=== PATIENT | female | born 1940 | race Caucasian/White ===

== ENCOUNTER 2018-05-18 00:59 | Inpatient (IN) | payer OTHER, MEDICAID ==
[~2018-05-18] VITALS: Ht 157.5 cm; Wt 100.5 kg
[2018-05-18] MEDS ORDERED: HEPARIN 25,000 UNITS/500ML PMX 500 ML ONE (01:05)
--- NOTE | 2018-05-18 01:14 | NUR ---
PT PRESENTS TO E/D FROM [facility]. 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 STATES PRESSURE IN CHEST AND RADIATING TO JAW. "I FELT LIKE I NEEDED TO BURP, BUT I COULDNT." TOOK 2 DOSES OF HOME NITRO--ACQUIRED FOR HER CHF PER REPORT-- WITH NO RELIEF. A 12 LEAD IN [facility] SHOWED A RIGHT BBB, BUT RESOLVED AFTER SECOND EKG. TWO TROPS AT [facility] W/ 0.11 FIRST AND 0.[address] ELEVATION IN EKG IN ED [facility]. 5K HEPARIN BOLUS STARTED IN AND DRIP PRESENT IN [facility]. 324 MG ASPIRIN ADMIN IN . ALL MONITORING APPLIED. VSS. CALL LIGHT WITHIN REACH.
[2018-05-18] MEDS ORDERED: HEPARIN 25,000 UNITS/500ML PMX 500 ML IV PRN (01:30)
[2018-05-18] MEDS ORDERED: HEPARIN 5,000 UNITS/ML, 1ML IV PRN (01:30)
[2018-05-18] MEDS ORDERED: HEPARIN 5,000 UNITS/ML, 1ML IV ONE (01:30)
--- NOTE | 2018-05-18 01:55 | NUR ---
Called [facility] as patient has Intermediate Plus and tx denied as patient does not require higher level of care.
[2018-05-18 02:04] VITALS: BP 147/82
[2018-05-18] MEDS ORDERED: SODIUM CHLORIDE 0.9% 1,000 ML IV SCH (02:29)
[2018-05-18] MEDS ORDERED: ONDANSETRON ODT 4 MG PO PRN (02:30)
[2018-05-18] MEDS ORDERED: BISACODYL 10 MG SUPP PR PRN (02:30)
[2018-05-18] MEDS ORDERED: PROMETHAZINE 25 MG/ML, 1ML IM PRN (02:30)
[2018-05-18] MEDS ORDERED: ONDANSETRON 2MG/ML, 2ML IVPush PRN (02:30)
[2018-05-18] MEDS ORDERED: NITROGLYCERIN 0.4 MG BOTTLE (25 TABS) SL PRN (02:30)
[2018-05-18] MEDS ORDERED: hydrALAzine 20 MG/ML, 1ML IVPush PRN (02:30)
[2018-05-18] MEDS ORDERED: morphine SULFATE 10 MG/ML, 1ML IVPush PRN (02:30)
[2018-05-18] MEDS ORDERED: DOCUSATE 100 MG CAPSULE PO PRN (02:30)
[2018-05-18] MEDS ORDERED: POLYETHYLENE GLYCOL 17 GM PACKET PO PRN (02:30)
[2018-05-18] MEDS ORDERED: ACETAMINOPHEN 325 MG TABLET PO PRN (02:30)
[2018-05-18] MEDS ORDERED: OXYcodone IR 5MG TABLET PO PRN (02:30)
[2018-05-18 04:18] LABS: MICROSCOPIC AUTO
[2018-05-18 04:26] LABS: CULTURE INDICATED? YES
[2018-05-18] MEDS ORDERED: ASPIRIN 325 MG TABLET EC PO SCH (06:00)
[2018-05-18 07:15] VITALS: BP 132/76
[2018-05-18 07:59] LABS: HEMOGLOBIN A1C 5.9 % (4.2-6.3)
[2018-05-18 08:01] LABS: FREE T4 (FREE THYROXINE) 1.08 ng/dL (0.76-1.46); THYROID STIMULATING HORMONE 0.63 mIU/L (0.358-3.740)
[2018-05-18] MEDS ORDERED: REGADENOSON 0.4 MG/5 ML SYRINGE ONE (08:30)
[2018-05-18] MEDS: FAMOTIDINE 20 MG/2 ML IVPush SCH ×2 (08:51→20:38)
[2018-05-18] MEDS ORDERED: SODIUM CHLORIDE 0.9% 1,000 ML IV ONE (10:30)
[2018-05-18 10:47] LABS: ANION GAP 8 mmol/L (5-15); CALCIUM 8.7 mg/dL (8.5-10.1); CHLORIDE 112 mmol/L (98-107); CREATININE 0.78 mg/dL (0.55-1.02)
[2018-05-18 10:49] LABS: INTERNATIONAL NORMALIZED RATIO 1.06 (0.93-1.1); PROTHROMBIN TIME 11.2 Seconds (9.6-11.5)
[2018-05-18] MEDS ORDERED: VERAPAMIL 2.5 MG/ML, 2ML ONE ×2 (13:44→15:52)
[2018-05-18] MEDS ORDERED: FENTANYL PF 100 MCG/2ML ONE ×2 (13:44→15:52)
[2018-05-18] MEDS ORDERED: MIDAZOLAM 1 MG/ML, 5ML ONE ×2 (13:44→15:52)
[2018-05-18] MEDS ORDERED: PRASUGREL 10 MG TABLET ONE (13:44)
[2018-05-18] MEDS ORDERED: NITROGLYCERIN 5 MG/ML, 10ML ONE (13:45)
[2018-05-18] MEDS ORDERED: BIVALIRUDIN 250 MG ONE ×3 (13:45→16:45)
[2018-05-18] MEDS ORDERED: LIDOCAINE 2%, 20ML ONE (13:45)
[2018-05-18] MEDS ORDERED: LIDOCAINE-MPF 2%, 2ML ONE (13:48)
[2018-05-18 14:25] VITALS: BP 147/78
[2018-05-18] MEDS ORDERED: TICAGRELOR 90 MG TABLET ONE (15:52)
[2018-05-18] MEDS ORDERED: LIDOCAINE-MPF 1%, 5ML ONE (15:53)
[2018-05-18] MEDS ORDERED: hydrALAzine 20 MG/ML, 1ML ONE (17:04)
[2018-05-18] MEDS ORDERED: BIVALIRUDIN 250 MG in DEXTROSE 5% 100 ML IV SCH (17:17)
[2018-05-18] MEDS ORDERED: hydrALAzine 20 MG/ML, 1ML IV PRN (17:30)
[2018-05-18] MEDS: METOPROLOL TARTRATE 25 MG TABLET PO SCH (17:42)
[2018-05-18] MEDS: SODIUM CHLORIDE 0.9% 1,000 ML IV SCH (17:42)
[2018-05-18 18:43] VITALS: BP 148/78
[2018-05-18] MEDS: TICAGRELOR 90 MG TABLET PO SCH (20:39)
[2018-05-18] MEDS: ATORVASTATIN 80 MG TABLET PO SCH (20:42)
[2018-05-19 01:01] VITALS: BP 154/73
[2018-05-19] MEDS: SODIUM CHLORIDE 0.9% 1,000 ML IV SCH ×2 (01:41→08:46)
[2018-05-19] MEDS: ASPIRIN 81 MG TABLET EC PO SCH (05:44)
[2018-05-19] MEDS: METOPROLOL TARTRATE 25 MG TABLET PO SCH ×2 (05:45→17:56)
[2018-05-19 06:07] LABS: BASOPHILS # (AUTO) 0.03 x10^3/uL (0-0.1); BASOPHILS % (AUTO) 0 % (0-1); EOSINOPHILS # (AUTO) 0.22 x10^3/uL (0-0.4); EOSINOPHILS % (AUTO) 3 % (1-7); LYMPHOCYTES # (AUTO) 1.72 x10^3/uL (1-3.4); LYMPHOCYTES % (AUTO) 24 % (22-44); MD NO; MEAN CORPUSCULAR HEMOGLOBIN 30.6 pg (27.0-34.8); MEAN CORPUSCULAR HGB CONC 34.1 g/dL (32.4-35.8); MEAN CORPUSCULAR VOLUME 89.9 fL (80-100); MEAN PLATELET VOLUME 8.7 fL (7.4-10.4); MONOCYTES # (AUTO) 0.75 x10^3/uL (0.2-0.8); MONOCYTES % (AUTO) 10 % (2-9); NEUTROPHILS # (AUTO) 4.53 x10^3/uL (1.8-6.8); NEUTROPHILS % (AUTO) 63 % (42-75); PLATELET COUNT 162 x10^3/uL (130-400); RED BLOOD COUNT 4.21 x10^6/uL (3.82-5.3); RED CELL DISTRIBUTION WIDTH 15.1 % (9.6-15.2)
[2018-05-19 06:13] LABS: ALBUMIN 3.1 g/dL (3.4-5.0); ANION GAP 7 mmol/L (5-15); CALCIUM 8.6 mg/dL (8.5-10.1); CHLORIDE 112 mmol/L (98-107)
[2018-05-19 06:17] LABS: ALANINE AMINOTRANSFERASE 20 U/L (12-78); ALKALINE PHOSPHATASE 81 U/L (45-117); BILIRUBIN,TOTAL 0.4 mg/dL (0.2-1.0); CHOL/HDL RATIO 6.4; CHOLESTEROL, TOTAL 212 mg/dL (140-239); CREATININE 0.75 mg/dL (0.55-1.02); HDL CHOL % 16 % (28-40); HDL CHOLESTEROL (DIRECT) 33 mg/dL (40-60); LDL CHOLESTEROL,CALCULATED 125 mg/dL (54-169); LDL/HDL RATIO 3.8 (0.5-3.0); TOTAL PROTEIN 6.6 g/dL (6.4-8.2); TRIGLYCERIDES 272 mg/dL (50-200); VLDL CHOLESTEROL 54 mg/dL (0-25)
[2018-05-19 07:55] VITALS: BP 155/88
[2018-05-19] MEDS: FAMOTIDINE 20 MG/2 ML IVPush SCH ×2 (08:46→20:59)
[2018-05-19] MEDS: LISINOPRIL 10 MG TABLET PO SCH (08:46)
[2018-05-19] MEDS: TICAGRELOR 90 MG TABLET PO SCH ×2 (08:46→20:59)
[2018-05-19 13:35] VITALS: BP 146/66
[2018-05-19] MEDS ORDERED: PHEN100C PO (19:04)
[2018-05-19 20:31] VITALS: BP 137/51
[2018-05-19] MEDS: ATORVASTATIN 80 MG TABLET PO SCH (20:59)
[2018-05-20 01:18] VITALS: BP 143/76
[2018-05-20 05:14] LABS: ANION GAP 5 mmol/L (5-15); CHLORIDE 113 mmol/L (98-107); CREATININE 0.86 mg/dL (0.55-1.02)
[2018-05-20 06:11] LABS: MEAN CORPUSCULAR HEMOGLOBIN 29.9 pg (27.0-34.8); MEAN CORPUSCULAR VOLUME 90.6 fL (80-100); MEAN PLATELET VOLUME 9.5 fL (7.4-10.4); PLATELET COUNT 154 x10^3/uL (130-400); RED BLOOD COUNT 4.21 x10^6/uL (3.82-5.3); RED CELL DISTRIBUTION WIDTH 14.9 % (9.6-15.2)
[2018-05-20 06:12] LABS: MD YES
[2018-05-20 06:14] LABS: BAND#(MANUAL) 0.09 x10^3/uL; BANDS%(MANUAL) 1 % (0-7); EOS#(MANUAL) 0.35 x10^3/uL (0.0-0.4); EOS% (MANUAL) 4 % (1-7); LYMPH#(MANUAL) 2.82 x10^3/uL (1-3.4); LYMPHS% (MANUAL) 32 % (22-44); MONOS% (MANUAL) 8 % (2-9); SEG#(MANUAL) 4.84 x10^3/uL (1.8-6.8); SEGS% (MANUAL) 55 % (42-75)
[2018-05-20 06:15] LABS: <PLATELET ESTIMATE> ADEQUATE; <PLT MORPHOLOGY> NORMAL PLT MORPH; <RBC MORPHOLOGY> NORMAL
[2018-05-20] MEDS: ASPIRIN 81 MG TABLET EC PO SCH (06:33)
[2018-05-20] MEDS: METOPROLOL TARTRATE 25 MG TABLET PO SCH ×2 (06:33→17:46)
[2018-05-20 07:50] VITALS: BP 143/78
[2018-05-20] MEDS: LISINOPRIL 10 MG TABLET PO SCH (10:10)
[2018-05-20] MEDS: FAMOTIDINE 20 MG/2 ML IVPush SCH ×2 (10:10→20:24)
[2018-05-20] MEDS: TICAGRELOR 90 MG TABLET PO SCH ×2 (10:10→20:24)
[2018-05-20 13:55] VITALS: BP 136/67
[2018-05-20 20:52] VITALS: BP 145/70
[2018-05-21 00:59] VITALS: BP 155/75
[2018-05-21] MEDS: ASPIRIN 81 MG TABLET EC PO SCH (05:38)
[2018-05-21] MEDS: METOPROLOL TARTRATE 25 MG TABLET PO SCH (05:38)
[2018-05-21 08:07] VITALS: BP 132/74
[2018-05-21] MEDS: TICAGRELOR 90 MG TABLET PO SCH (08:33)
[2018-05-21] MEDS ORDERED: LISINOPRIL 20 MG TABLET PO SCH (09:00)
[2018-05-21] MEDS ORDERED: ROSU10TA PO (11:02)
[2018-05-21] MEDS ORDERED: LISI-170 PO (11:02)
[2018-05-21] MEDS ORDERED: ASPI81TA45 PO (11:02)
[2018-05-21] MEDS ORDERED: TICA90TA PO (11:02)
[2018-05-21] MEDS ORDERED: METO25TA35 PO (11:02)
== END 2018-05-21 12:00 | disposition home or self-care (01) | DRG 246 ==
LOC: ED 01:59 → INTOOBSV 02:00 → EDIP 02:00 → 5SO 02:09 → OBSVTOIN 15:13 → 5SO 05-19 14:08
PROVIDERS: ADMIT Internal Medicine; ATTEND Internal Medicine
PROC: 027137Z Dilation of Coronary Artery, Two Arteries with Four or More Drug-eluting Intraluminal Devices, Percutaneous Approach (ICD-10-PCS; principal; 2018-05-18)
PROC: 4A023N7 Measurement of Cardiac Sampling and Pressure, Left Heart, Percutaneous Approach (ICD-10-PCS; 2018-05-18)
PROC: B2111ZZ Fluoroscopy of Multiple Coronary Arteries using Low Osmolar Contrast (ICD-10-PCS; 2018-05-18)
PROC: B2151ZZ Fluoroscopy of Left Heart using Low Osmolar Contrast (ICD-10-PCS; 2018-05-18)
DX: I21.4 Non-ST elevation (NSTEMI) myocardial infarction (principal); N17.0 Acute kidney failure with tubular necrosis; I11.0 Hypertensive heart disease with heart failure; E78.5 Hyperlipidemia, unspecified; G40.909 Epilepsy, unspecified, not intractable, without status epilepticus; I25.5 Ischemic cardiomyopathy; I34.0 Nonrheumatic mitral (valve) insufficiency; I45.10 Unspecified right bundle-branch block; I50.9 Heart failure, unspecified; I25.10 Atherosclerotic heart disease of native coronary artery without angina pectoris; I70.0 Atherosclerosis of aorta; Z98.51 Tubal ligation status; Z88.8 Allergy status to other drugs, medicaments and biological substances; Z79.899 Other long term (current) drug therapy; Z85.038 Personal history of other malignant neoplasm of large intestine; Z90.710 Acquired absence of both cervix and uterus; Z92.21 Personal history of antineoplastic chemotherapy
CPT/HCPCS: 36415; 71046; 80048; 80053; 80061; 81001; 83036; 83735; 84439; 84443; 84484; 85025; 85520; 85610; 87086; 93005; 93306; 93454; 93458; 99156; 99157; C1760; C1769; C1894; C9600; G0378; J0583; J1644; J2250; J2785; J3010; J3490; Q0162; C1725; C1874; C1887; J0360; J7030; Q9967